=== PATIENT | male | born 1970 | race Caucasian/White ===

== ENCOUNTER 2019-04-28 06:04 | Emergency (ER) | payer OTHER, SELFPAY ==
[~2019-04-28] VITALS: Ht 182.9 cm; Wt 122.4 kg
[2019-04-28 06:08] VITALS: BP 120/84
--- NOTE | 2019-04-28 06:18 | NUR ---
brought in by wander from work. patient states he is doing stretching and lost his balance and felt a " pop " on his ankle. described as splintering pain. + CMS
--- NOTE | 2019-04-28 06:18 | NUR ---
Pt alert and resting on gurney. NAD. Right ankle/lower leg in air splint per EMS. CMS intact. Hx of injuries this ankle. Pt recieved zofran and morphine [employer].
--- NOTE | 2019-04-28 06:18 | NUR ---
assessment made. PA at bedside.
--- NOTE | 2019-04-28 06:39 | NUR ---
rad at bedside
--- NOTE | 2019-04-28 06:43 | NUR ---
ICE PACK GIVEN
--- NOTE | 2019-04-28 06:57 | NUR ---
Report to Pari MCGINNIS
== END 2019-04-28 08:34 | disposition home or self-care (01) ==
LOC: ED 07:12
DX: S93.401A Sprain of unspecified ligament of right ankle, initial encounter (principal); S90.31XA Contusion of right foot, initial encounter; W18.39XA Other fall on same level, initial encounter; Y93.89 Activity, other specified; Y92.89 Other specified places as the place of occurrence of the external cause; Y99.8 Other external cause status
CPT/HCPCS: 99283

== ENCOUNTER 2020-11-06 15:52 | Emergency (ER) | payer OTHER ==
[~2020-11-06] VITALS: Ht 195.6 cm; Wt 116.5 kg
--- NOTE | 2020-11-06 18:14 | NUR ---
lab at bedside for draw. pt connected to nibp and o2 monitoring
[2020-11-06 18:15] VITALS: BP 125/75
[2020-11-06 18:32] LABS: BASOPHILS % (AUTO) 1 % (0-1); EOSINOPHILS % (AUTO) 5 % (1-7); LYMPHOCYTES % (AUTO) 29 % (22-44); MEAN CORPUSCULAR HEMOGLOBIN 29.6 pg (27.5-34.5); MEAN CORPUSCULAR HGB CONC 33.5 g/dL (33.2-36.2); MEAN PLATELET VOLUME 8.5 fL (7.4-10.4); MONOCYTES % (AUTO) 9 % (2-9); NEUTROPHILS % (AUTO) 57 % (42-75); PLATELET COUNT 198 x10^3/uL (130-400); RED BLOOD COUNT 5.21 x10^6/uL (4.38-5.82); RED CELL DISTRIBUTION WIDTH 13.8 % (9.4-14.8)
[2020-11-06 18:35] LABS: ALBUMIN 3.5 g/dL (3.4-5.0); ANION GAP 3 mmol/L (5-15); CALCIUM 8.6 mg/dL (8.5-10.1); CHLORIDE 109 mmol/L (98-107); CREATININE 0.76 mg/dL (0.7-1.3)
[2020-11-06 18:36] LABS: PROTHROMBIN TIME 10.7 Seconds (9.6-11.5)
== END 2020-11-06 19:25 | disposition home or self-care (01) ==
LOC: ED 18:56
DX: I82.412 Acute embolism and thrombosis of left femoral vein (principal); I82.432 Acute embolism and thrombosis of left popliteal vein; R00.0 Tachycardia, unspecified; M19.90 Unspecified osteoarthritis, unspecified site
CPT/HCPCS: 36415; 80048; 82040; 85025; 85610; 99284